=== PATIENT | female | born 1975 | race Caucasian/White ===

== ENCOUNTER 2023-08-01 13:32 | Emergency (ER) | payer OTHER ==
[2023-08-01 14:07] VITALS: BP 113/66; PULSE 109; RESP 18; TEMP 98; BMI 29.2
[2023-08-01] MEDS ORDERED: ACETAMINOPHEN 500 MG TABLET (FP) PO ONE (15:18)
[2023-08-01] MEDS ORDERED: ACETAMINOPHEN 500 MG TABLET (FP) ONE (15:20)
[2023-08-01 16:14] LABS: BASO % 0.3 % (0-2.0); EOS % 0.3 % (0-4.5); HEMATOCRIT 39.1 % (32.4-45.2); MCH 27.3 pg (25.7-33.7); MCHC 33.2 g/dl (32.0-36.0); MEAN PLT VOLUME 9.2 fl (7.5-11.1); MONO % 12.7 % (3.8-10.2); NEUT % 69.7 % (42.8-82.8); PLATELET COUNT 211 10^3/uL (134-434); RBC 4.77 M/mm3 (3.60-5.2); RDW 13.3 % (11.6-15.6); WHITE BLOOD COUNT 5.8 K/mm3 (4.0-10.0)
[2023-08-01 16:36] LABS: POTASSIUM 3.2 mmol/L (3.5-5.1)
[2023-08-01 16:37] LABS: CALCIUM 8.8 mg/dL (8.5-10.1)
[2023-08-01 16:38] LABS: BLOOD UREA NITROGEN 9.6 mg/dL (7-18)
[2023-08-01 16:41] LABS: CREATININE 0.5 mg/dL (0.55-1.3)
== END 2023-08-01 16:58 | disposition home or self-care (01) ==
LOC: JER 13:32 → JERFT 13:32
DX: R50.9 Fever, unspecified (principal); R11.0 Nausea; M79.10 Myalgia, unspecified site; U07.1 COVID-19
CPT/HCPCS: 0241U-QW; 36415; 71046-TC-FY; 80048; 84484; 85025; 93005; 93010; 99285-25

== ENCOUNTER 2024-03-27 00:50 | Emergency (ER) | payer OTHER ==
[2024-03-27 01:01] VITALS: BMI 30.2
[2024-03-27] MEDS ORDERED: ACETAMINOPHEN 325 MG TABLET (FP) ONE (02:23)
[2024-03-27] MEDS: ACETAMINOPHEN 500 MG TABLET (FP) PO ONE (02:26)
[2024-03-27] MEDS ORDERED: IBUPROFEN 400 MG TABLET (FP) PO ONE (02:54)
[2024-03-27] MEDS: IBUPROFEN 400 MG TABLET (FP) PO ONE (02:56)
[2024-03-27 04:06] VITALS: BP 90/60; PULSE 111; RESP 16; TEMP 99.5
== END 2024-03-27 04:28 | disposition home or self-care (01) ==
LOC: JER 00:50
DX: R50.9 Fever, unspecified (principal); M79.10 Myalgia, unspecified site; R51.9 Headache, unspecified; R06.02 Shortness of breath; R07.9 Chest pain, unspecified; R11.0 Nausea; R00.0 Tachycardia, unspecified; Z20.822 Contact with and (suspected) exposure to COVID-19
CPT/HCPCS: 0241U-QW; 93005; 93010; 99284-25

== ENCOUNTER 2024-05-07 12:28 | Inpatient (IN) | payer OTHER ==
[2024-05-07] MEDS: SODIUM CHLORIDE 1,000 ML IV STA ×2 (13:03→19:59)
[2024-05-07] MEDS: ACETAMINOPHEN 1000 MG/100 ML BAG IVPB ONE (13:03)
[2024-05-07] MEDS ORDERED: ACETAMINOPHEN INJECTION 100 ML ONE ×2 (13:04→22:44)
[2024-05-07 13:06] LABS: BASO % 0.2 % (0-2.0); EOS % 0.1 % (0-4.5); HEMATOCRIT 36.8 % (32.4-45.2); HEMOGLOBIN 12.3 GM/dL (10.7-15.3); LYMPH % 4.8 % (8-40); MCH 27.3 pg (25.7-33.7); MCHC 33.4 g/dl (32.0-36.0); MEAN CELL VOLUME 81.6 fl (80-96); MEAN PLT VOLUME 8.2 fl (7.5-11.1); MONO % 4.8 % (3.8-10.2); NEUT % 90.1 % (42.8-82.8); PLATELET COUNT 287 10^3/uL (134-434); RBC 4.51 M/mm3 (3.60-5.2); RDW 13.4 % (11.6-15.6); WHITE BLOOD COUNT 15.5 K/mm3 (4.0-10.0)
[2024-05-07 13:13] LABS: INR 1.13 (0.83-1.09)
[2024-05-07 13:16] LABS: ACTIVATED PTT 33.1 SECONDS (25.2-36.5)
[2024-05-07 13:24] LABS: POTASSIUM 3.8 mmol/L (3.5-5.1)
[2024-05-07 13:26] LABS: CALCIUM 9.3 mg/dL (8.5-10.1)
[2024-05-07 13:27] LABS: ALBUMIN 3.4 g/dl (3.4-5.0); BLOOD UREA NITROGEN 25.6 mg/dL (7-18)
[2024-05-07 13:30] LABS: CREATININE 0.9 mg/dL (0.55-1.3)
[2024-05-07 13:31] LABS: BILIRUBIN,TOTAL 0.6 mg/dL (0.2-1); TOT PROT 7.7 g/dl (6.4-8.2)
[2024-05-07 13:37] LABS: LACTIC ACID 2.3 mmol/L (0.4-2.0)
[2024-05-07] MEDS ORDERED: ONDANSETRON 4 MG/2 ML VIAL ONE (13:44)
[2024-05-07] MEDS: ONDANSETRON 4 MG/2 ML VIAL IVPUSH ONE (13:47)
[2024-05-07] MEDS: SODIUM CHLORIDE 0.9% 500 ML INFUS.BAG IV ONE ×3 (13:47→17:49)
[2024-05-07 14:41] LABS: EPI CELLS 19 /uL (0-25.1); HYALINE CASTS 1 /uL (0-3.1); PH,URINE 5.5 (5.0-8.0); URINE APPEARANCE CLOUDY; URINE BACTERIA 3735 /uL (0-1359); URINE BILIRUBIN NEGATIVE (NEGATIVE); URINE COLOR DK YELLOW; URINE GLUCOSE (UA) 3+ (NEGATIVE); URINE KETONE NEGATIVE (NEGATIVE); URINE LEUK ESTERASE 2+ (NEGATIVE); URINE NITRITE NEGATIVE (NEGATIVE); URINE PROTEIN 2+ (NEGATIVE); URINE WBC 2078 /uL (0-25.8)
[2024-05-07 14:44] LABS: URINE RBC 18 /uL (0-23.9)
[2024-05-07] MEDS ORDERED: PIPERACILLIN/TAZOB 4.5 GM 4.5 GM/100 ML BAG IVPB ONE (14:45)
[2024-05-07] MEDS: VANCOMYCIN 1,000 MG in DEXTROSE 5%-WATER - 250 ML IVPB ONE (14:53)
[2024-05-07] MEDS: PIPERACILLIN/TAZOB 3.375 GM 3.375 GM in DEXTROSE 5%-WATER - 50 ML IVPB ONE (14:53)
[2024-05-07] MEDS: PIPERACILLIN/TAZOB 4.5 GM 4.5 GM in DEXTROSE 5%-WATER 100 ML IVPB ONE (14:53)
[2024-05-07] MEDS: SODIUM CHLORIDE 1,000 ML IV SCH (20:29)
[2024-05-07] MEDS: INSULIN ASPART SLIDING SCALE (NOVOLOG) 1 VIAL SQ SCH (20:37)
[2024-05-07] MEDS ORDERED: PIPERACILLIN/TAZOB 3.375 GM 3.375 GM/50 ML BAG IVPB ONE (21:23)
[2024-05-07] MEDS ORDERED: INSULIN (LEVEMIR) 100 UNITS/ML UNITS SQ ONE (21:24)
[2024-05-07] MEDS: INSULIN (LEVEMIR) 100 UNITS/ML UNITS SQ ONE (21:30)
[2024-05-07] MEDS: PIPERACILLIN/TAZOB 3.375 GM 3.375 GM in DEXTROSE 5%-WATER - 50 ML IVPB SCH (21:30)
[2024-05-07] MEDS ORDERED: ONDANSETRON 4 MG/2 ML VIAL IVPUSH PRN (21:46)
[2024-05-07] MEDS: ACETAMINOPHEN 1000 MG/100 ML BAG IVPB PRN (22:46)
[2024-05-07] MEDS ORDERED: POLYETHYLENE GLYCOL (HEALTHYLAX) 3350 17 GM PACKET PO PRN (23:18)
[2024-05-08] MEDS: POLYETHYLENE GLYCOL (HEALTHYLAX) 3350 17 GM PACKET PO SCH (01:30)
[2024-05-08 04:12] VITALS: BMI 30.4
[2024-05-08] MEDS ORDERED: INSULIN (LEVEMIR) 100 UNITS/ML UNITS SQ SCH ×2 (07:00→22:00)
[2024-05-08 07:15] LABS: BASO % 0.2 % (0-2.0); EOS % 0.2 % (0-4.5); HEMOGLOBIN 10.3 GM/dL (10.7-15.3); LYMPH % 6.5 % (8-40); MCH 27.7 pg (25.7-33.7); MCHC 33.3 g/dl (32.0-36.0); MEAN CELL VOLUME 83.2 fl (80-96); MEAN PLT VOLUME 8.5 fl (7.5-11.1); MONO % 5.7 % (3.8-10.2); NEUT % 87.4 % (42.8-82.8); PLATELET COUNT 221 10^3/uL (134-434); RBC 3.73 M/mm3 (3.60-5.2); RDW 12.9 % (11.6-15.6); WHITE BLOOD COUNT 11.1 K/mm3 (4.0-10.0)
[2024-05-08 07:27] LABS: POTASSIUM 3.5 mmol/L (3.5-5.1)
[2024-05-08] MEDS: INSULIN ASPART SLIDING SCALE (NOVOLOG) 1 VIAL SQ SCH (07:31)
[2024-05-08 07:35] LABS: MAGNESIUM 1.6 mg/dL (1.8-2.4)
[2024-05-08 07:36] LABS: ALBUMIN 2.2 g/dl (3.4-5.0); CALCIUM 7.4 mg/dL (8.5-10.1)
[2024-05-08 07:38] LABS: CREATININE 0.5 mg/dL (0.55-1.3); PHOSPHOROUS 1.6 mg/dL (2.5-4.9)
[2024-05-08 07:39] LABS: BILIRUBIN,TOTAL 0.5 mg/dL (0.2-1)
[2024-05-08 07:44] LABS: TOT PROT 5.6 g/dl (6.4-8.2)
[2024-05-08] MEDS: ENOXAPARIN NA (PORCINE) 40 MG/0.4 ML DISP.SYRIN SQ SCH (09:42)
[2024-05-08] MEDS ORDERED: METOCLOPRAMIDE HCL INJECTION 10 MG/2 ML VIAL IVPUSH PRN (11:42)
[2024-05-08] MEDS: LACTATED RINGERS SOLUTION 1,000 ML/1,000 ML INFUS.BAG IV SCH ×2 (15:46→17:48)
[2024-05-08] MEDS: MAGNESIUM SULFATE IN WATER 2 GM/50 ML IVPB IVPB ONE (15:47)
[2024-05-08] MEDS: NAPH,MB-DB/K PH,MBDB POWDER PACKET PO ONE (15:47)
[2024-05-08] MEDS: PIPERACILLIN/TAZOB 3.375 GM 3.375 GM in DEXTROSE 5%-WATER - 50 ML IVPB SCH (17:16)
[2024-05-08] MEDS: INSULIN (LEVEMIR) 100 UNITS/ML UNITS SQ SCH (22:18)
[2024-05-09 07:55] LABS: BASO % 0.2 % (0-2.0); EOS % 1.1 % (0-4.5); HEMATOCRIT 29.4 % (32.4-45.2); HEMOGLOBIN 9.8 GM/dL (10.7-15.3); LYMPH % 14.1 % (8-40); MCH 27.5 pg (25.7-33.7); MCHC 33.4 g/dl (32.0-36.0); MEAN CELL VOLUME 82.4 fl (80-96); MEAN PLT VOLUME 8.7 fl (7.5-11.1); MONO % 7.9 % (3.8-10.2); NEUT % 76.7 % (42.8-82.8); PLATELET COUNT 210 10^3/uL (134-434); RBC 3.56 M/mm3 (3.60-5.2); RDW 13.3 % (11.6-15.6); WHITE BLOOD COUNT 9.5 K/mm3 (4.0-10.0)
[2024-05-09 08:08] LABS: POTASSIUM 3.3 mmol/L (3.5-5.1)
[2024-05-09 08:09] LABS: CALCIUM 8.3 mg/dL (8.5-10.1)
[2024-05-09 08:10] LABS: ALBUMIN 2.1 g/dl (3.4-5.0); BLOOD UREA NITROGEN 8.5 mg/dL (7-18)
[2024-05-09 08:14] LABS: CREATININE 0.3 mg/dL (0.55-1.3)
[2024-05-09 08:15] LABS: BILIRUBIN,TOTAL 0.9 mg/dL (0.2-1); TOT PROT 5.6 g/dl (6.4-8.2)
[2024-05-09] MEDS: SUCRALFATE 1 GM TABLET (FP) PO SCH (10:30)
[2024-05-09] MEDS: PANTOPRAZOLE SODIUM 40 MG VIAL IVPUSH SCH (10:30)
[2024-05-09] MEDS: CEFAZOLIN SODIUM 2 GM in DEXTROSE 5%-WATER 100 ML IVPB SCH (14:21)
[2024-05-09] MEDS: PNEUMOC 20-VAL CONJ-DIP CRM/PF 0.5 ML SYRINGE IM ONE (15:05)
[2024-05-09] MEDS: POTASSIUM CHLORIDE ORAL LIQUID 20 MEQ/15 ML PO ONE (17:37)
[2024-05-09] MEDS: ACETAMINOPHEN 325 MG TABLET (FP) PO PRN (18:25)
[2024-05-09] MEDS: PIPERACILLIN/TAZOB 3.375 GM 3.375 GM in DEXTROSE 5%-WATER - 50 ML IVPB SCH (19:46)
[2024-05-09] MEDS ORDERED: METOCLOPRAMIDE HCL INJECTION 10 MG/2 ML VIAL IVPUSH PRN (19:59)
[2024-05-09] MEDS: LACTATED RINGERS SOLUTION 1,000 ML/1,000 ML INFUS.BAG IV SCH (21:34)
[2024-05-09] MEDS: INSULIN (LEVEMIR) 100 UNITS/ML UNITS SQ SCH (21:34)
[2024-05-09] MEDS: POLYETHYLENE GLYCOL (HEALTHYLAX) 3350 17 GM PACKET PO SCH (21:39)
[2024-05-10] MEDS: INSULIN ASPART SLIDING SCALE (NOVOLOG) 1 VIAL SQ SCH (06:04)
[2024-05-10] MEDS: SUCRALFATE 1 GM TABLET (FP) PO SCH (06:04)
[2024-05-10 07:38] LABS: HEMATOCRIT 28.3 % (32.4-45.2); HEMOGLOBIN 9.5 GM/dL (10.7-15.3); MCH 27.6 pg (25.7-33.7); MCHC 33.4 g/dl (32.0-36.0); MEAN CELL VOLUME 82.7 fl (80-96); MEAN PLT VOLUME 8.4 fl (7.5-11.1); PLATELET COUNT 248 10^3/uL (134-434); RBC 3.43 M/mm3 (3.60-5.2); RDW 13.1 % (11.6-15.6)
[2024-05-10 07:47] LABS: CALCIUM 8.2 mg/dL (8.5-10.1)
[2024-05-10 07:50] LABS: BLOOD UREA NITROGEN 7.1 mg/dL (7-18)
[2024-05-10 07:51] LABS: CREATININE 0.4 mg/dL (0.55-1.3)
[2024-05-10 07:52] LABS: BILIRUBIN,TOTAL 0.3 mg/dL (0.2-1); TOT PROT 5.7 g/dl (6.4-8.2)
[2024-05-10 08:57] LABS: MAGNESIUM 1.9 mg/dL (1.8-2.4)
[2024-05-10] MEDS: POTASSIUM CHLORIDE ORAL LIQUID 20 MEQ/15 ML PO ONE (09:21)
[2024-05-10] MEDS: ENOXAPARIN NA (PORCINE) 40 MG/0.4 ML DISP.SYRIN SQ SCH (10:10)
[2024-05-10] MEDS: PANTOPRAZOLE SODIUM 40 MG VIAL IVPUSH SCH (10:10)
[2024-05-10] MEDS: INSULIN (LEVEMIR) 100 UNITS/ML UNITS SQ SCH (21:31)
[2024-05-11] MEDS ORDERED: CEFAZOLIN SODIUM 2 GM VIAL ONE (02:05)
[2024-05-11] MEDS ORDERED: INSULIN (LEVEMIR) 100 UNITS/ML UNITS SQ SCH (08:20)
[2024-05-11 08:54] LABS: BASO % 0.4 % (0-2.0); EOS % 1.1 % (0-4.5); HEMOGLOBIN 9.8 GM/dL (10.7-15.3); LYMPH % 17.7 % (8-40); MCH 27.1 pg (25.7-33.7); MCHC 32.9 g/dl (32.0-36.0); MEAN CELL VOLUME 82.6 fl (80-96); MEAN PLT VOLUME 8.4 fl (7.5-11.1); MONO % 9.1 % (3.8-10.2); NEUT % 71.7 % (42.8-82.8); PLATELET COUNT 309 10^3/uL (134-434); RBC 3.63 M/mm3 (3.60-5.2); RDW 13.4 % (11.6-15.6); WHITE BLOOD COUNT 7.9 K/mm3 (4.0-10.0)
[2024-05-11 09:12] LABS: POTASSIUM 3.9 mmol/L (3.5-5.1)
[2024-05-11 09:22] LABS: BLOOD UREA NITROGEN 4.9 mg/dL (7-18); CALCIUM 8.7 mg/dL (8.5-10.1)
[2024-05-11 09:25] LABS: CREATININE 0.3 mg/dL (0.55-1.3)
[2024-05-11] MEDS: INSULIN (LEVEMIR) 100 UNITS/ML UNITS SQ SCH (21:26)
[2024-05-12 07:26] VITALS: TEMP 98.4
[2024-05-12] MEDS: PANTOPRAZOLE 40 MG TABLET PO SCH (10:25)
[2024-05-12 11:26] VITALS: BP 95/75; PULSE 95; RESP 18
== END 2024-05-12 17:41 | disposition home or self-care (01) | DRG 720 ==
LOC: JER 12:28 → JERBED 14:52 → J4W 23:45 → J6S 05-09 18:28 → J7W 05-09 18:39
PROVIDERS: ADMIT Internal Medicine; ATTEND Nurse Practitioner
DX: A41.89 Other specified sepsis (principal); I95.9 Hypotension, unspecified; R00.0 Tachycardia, unspecified; D50.9 Iron deficiency anemia, unspecified; R11.2 Nausea with vomiting, unspecified; R91.1 Solitary pulmonary nodule; E11.65 Type 2 diabetes mellitus with hyperglycemia; N39.0 Urinary tract infection, site not specified; B96.20 Unspecified Escherichia coli [E. coli] as the cause of diseases classified elsewhere; D35.01 Benign neoplasm of right adrenal gland; K59.00 Constipation, unspecified; N12 Tubulo-interstitial nephritis, not specified as acute or chronic; N28.1 Cyst of kidney, acquired
CPT/HCPCS: 0241U-QW; 36415; 71045-TC-FY; 74176-TC; 76775-TC; 80048; 80053; 80061; 81003; 82962; 83036; 83605; 83735; 84100; 84443; 84484; 85025; 85027; 85610; 85730; 86850; 86900; 86901; 87040; 87086; 87186; 90677; 93005; 93010; 99285-25; G0009; J0131

== ENCOUNTER 2024-06-01 21:37 | Inpatient (IN) | payer OTHER ==
[2024-06-01] MEDS ORDERED: PIPERACILLIN/TAZOB 4.5 GM 4.5 GM/100 ML BAG IVPB ONE (22:58)
[2024-06-01] MEDS ORDERED: ACETAMINOPHEN INJECTION 100 ML ONE (22:58)
[2024-06-01 22:59] LABS: VENOUS O2 SATURATION 69.7 % (70-80); VENOUS PCO2 37.5 mmHg (38-52); VENOUS PH 7.44 (7.310-7.410)
[2024-06-01 23:02] LABS: EOS % 0.5 % (0-4.5); HEMATOCRIT 34.9 % (32.4-45.2); HEMOGLOBIN 11.4 GM/dL (10.7-15.3); MCH 26.8 pg (25.7-33.7); MCHC 32.7 g/dl (32.0-36.0); MEAN CELL VOLUME 81.9 fl (80-96); MEAN PLT VOLUME 8.5 fl (7.5-11.1); MONO % 8.8 % (3.8-10.2); NEUT % 75.7 % (42.8-82.8); PLATELET COUNT 216 10^3/uL (134-434); RBC 4.27 M/mm3 (3.60-5.2); WHITE BLOOD COUNT 12.2 K/mm3 (4.0-10.0)
[2024-06-01 23:07] LABS: EPI CELLS 8 /uL (0-25.1); HYALINE CASTS 2 /uL (0-3.1); URINE APPEARANCE CLEAR; URINE BACTERIA >9,000 /uL (0-1359); URINE BILIRUBIN NEGATIVE (NEGATIVE); URINE COLOR YELLOW; URINE GLUCOSE (UA) 2+ (NEGATIVE); URINE KETONE TRACE (NEGATIVE); URINE LEUK ESTERASE 2+ (NEGATIVE); URINE NITRITE POSITIVE (NEGATIVE); URINE PROTEIN 1+ (NEGATIVE); URINE RBC 25 /uL (0-23.9); URINE WBC 371 /uL (0-25.8)
[2024-06-01 23:08] LABS: INR 1.05 (0.83-1.09); PROTHROMBIN TIME (PATIENT) 11.9 SEC (9.7-13.0)
[2024-06-01] MEDS: SODIUM CHLORIDE 0.9% 500 ML INFUS.BAG IV ONE (23:09)
[2024-06-01] MEDS: ACETAMINOPHEN 1000 MG/100 ML BAG IVPB ONE (23:09)
[2024-06-01 23:11] LABS: ACTIVATED PTT 31.3 SECONDS (25.2-36.5)
[2024-06-01] MEDS: PIPERACILLIN/TAZOB 4.5 GM 4.5 GM in DEXTROSE 5%-WATER 100 ML IVPB ONE (23:11)
[2024-06-01 23:28] LABS: POTASSIUM 3.6 mmol/L (3.5-5.1)
[2024-06-01 23:31] LABS: BLOOD UREA NITROGEN 16.7 mg/dL (7-18)
[2024-06-01 23:34] LABS: CREATININE 0.6 mg/dL (0.55-1.3)
[2024-06-01 23:36] LABS: BILIRUBIN,TOTAL 0.7 mg/dL (0.2-1); TOT PROT 7.3 g/dl (6.4-8.2)
[2024-06-02] MEDS: SODIUM CHLORIDE 0.9% 500 ML INFUS.BAG IV ONE (00:02)
[2024-06-02] MEDS ORDERED: INSULIN ASPART SLIDING SCALE (NOVOLOG) 1 VIAL SQ ONE (02:36)
[2024-06-02] MEDS: LACTATED RINGERS SOLUTION 1,000 ML/1,000 ML INFUS.BAG IV SCH (02:56)
[2024-06-02] MEDS: INSULIN ASPART SLIDING SCALE (NOVOLOG) 1 VIAL SQ SCH ×2 (02:57→18:32)
[2024-06-02 04:09] VITALS: BMI 30.6
[2024-06-02] MEDS ORDERED: ACETAMINOPHEN 1000 MG/100 ML BAG IVPB PRN (04:13)
[2024-06-02] MEDS ORDERED: PIPERACILLIN/TAZOB 3.375 GM 3.375 GM in DEXTROSE 5%-WATER - 50 ML IVPB SCH (06:00)
[2024-06-02] MEDS: INSULIN (LEVEMIR) 100 UNITS/ML UNITS SQ SCH ×3 (06:00→06:09)
[2024-06-02] MEDS: PANTOPRAZOLE 40 MG TABLET PO SCH (06:10)
[2024-06-02] MEDS: PIPERACILLIN/TAZOB 3.375 GM 3.375 GM in DEXTROSE 5%-WATER - 50 ML IVPB SCH (06:11)
[2024-06-02 08:24] LABS: HEMATOCRIT 31.8 % (32.4-45.2); HEMOGLOBIN 10.4 GM/dL (10.7-15.3); MCH 27.1 pg (25.7-33.7); MCHC 32.9 g/dl (32.0-36.0); MEAN CELL VOLUME 82.5 fl (80-96); PLATELET COUNT 203 10^3/uL (134-434); RBC 3.85 M/mm3 (3.60-5.2); RDW 14.7 % (11.6-15.6); WHITE BLOOD COUNT 10.5 K/mm3 (4.0-10.0)
[2024-06-02 08:40] LABS: POTASSIUM 3.4 mmol/L (3.5-5.1)
[2024-06-02 08:47] LABS: CALCIUM 8.5 mg/dL (8.5-10.1); CREATININE 0.5 mg/dL (0.55-1.3)
[2024-06-02 08:48] LABS: ALBUMIN 2.5 g/dl (3.4-5.0); BLOOD UREA NITROGEN 10.2 mg/dL (7-18); MAGNESIUM 1.8 mg/dL (1.8-2.4); PHOSPHOROUS 2.2 mg/dL (2.5-4.9)
[2024-06-02 08:49] LABS: BILIRUBIN,TOTAL 0.5 mg/dL (0.2-1); TOT PROT 6.4 g/dl (6.4-8.2)
[2024-06-02] MEDS: ACETAMINOPHEN 1000 MG/100 ML BAG IVPB PRN (14:14)
[2024-06-02] MEDS: ENOXAPARIN NA (PORCINE) 40 MG/0.4 ML DISP.SYRIN SQ SCH (15:54)
[2024-06-02] MEDS ORDERED: PIPERACILLIN/TAZOB 4.5 GM 4.5 GM in DEXTROSE 5%-WATER 100 ML IVPB SCH (18:00)
[2024-06-02] MEDS: PIPERACILLIN/TAZOB 4.5 GM 4.5 GM in DEXTROSE 5%-WATER 100 ML IVPB SCH (18:18)
[2024-06-02] MEDS ORDERED: INSULIN ASPART SLIDING SCALE (NOVOLOG) 1 VIAL SQ SCH (22:00)
[2024-06-03 09:40] LABS: BASO % 0.4 % (0-2.0); EOS % 1.3 % (0-4.5); HEMATOCRIT 31.7 % (32.4-45.2); HEMOGLOBIN 10.5 GM/dL (10.7-15.3); LYMPH % 17.1 % (8-40); MCH 26.9 pg (25.7-33.7); MEAN CELL VOLUME 81.5 fl (80-96); MEAN PLT VOLUME 8.5 fl (7.5-11.1); MONO % 8.5 % (3.8-10.2); NEUT % 72.7 % (42.8-82.8); PLATELET COUNT 216 10^3/uL (134-434); RBC 3.89 M/mm3 (3.60-5.2); WHITE BLOOD COUNT 8.2 K/mm3 (4.0-10.0)
[2024-06-03 09:55] LABS: POTASSIUM 3.3 mmol/L (3.5-5.1)
[2024-06-03 10:07] LABS: ALBUMIN 2.5 g/dl (3.4-5.0); BLOOD UREA NITROGEN 6.7 mg/dL (7-18)
[2024-06-03 10:11] LABS: CREATININE 0.4 mg/dL (0.55-1.3)
[2024-06-03 10:12] LABS: BILIRUBIN,TOTAL 0.6 mg/dL (0.2-1); TOT PROT 6.5 g/dl (6.4-8.2)
[2024-06-03] MEDS: CEFTRIAXONE 2 GM in DEXTROSE 5%-WATER 100 ML IVPB SCH (11:30)
[2024-06-03] MEDS: POTASSIUM CHLORIDE ORAL LIQUID 20 MEQ/15 ML PO ONE (12:51)
[2024-06-03 14:09] VITALS: RESP 18
[2024-06-04 09:43] LABS: BASO % 0.5 % (0-2.0); EOS % 2.4 % (0-4.5); HEMATOCRIT 33.2 % (32.4-45.2); HEMOGLOBIN 10.7 GM/dL (10.7-15.3); LYMPH % 24.3 % (8-40); MCH 26.6 pg (25.7-33.7); MCHC 32.3 g/dl (32.0-36.0); MEAN CELL VOLUME 82.3 fl (80-96); MEAN PLT VOLUME 8.3 fl (7.5-11.1); MONO % 8.7 % (3.8-10.2); NEUT % 64.1 % (42.8-82.8); PLATELET COUNT 283 10^3/uL (134-434); RBC 4.04 M/mm3 (3.60-5.2); RDW 14.4 % (11.6-15.6); WHITE BLOOD COUNT 7.3 K/mm3 (4.0-10.0)
[2024-06-04 09:58] LABS: POTASSIUM 3.6 mmol/L (3.5-5.1)
[2024-06-04 10:01] LABS: CALCIUM 9.1 mg/dL (8.5-10.1)
[2024-06-04 10:03] LABS: ALBUMIN 2.6 g/dl (3.4-5.0); BLOOD UREA NITROGEN 9.9 mg/dL (7-18)
[2024-06-04 10:05] LABS: CREATININE 0.5 mg/dL (0.55-1.3)
[2024-06-04 10:06] LABS: BILIRUBIN,TOTAL 0.3 mg/dL (0.2-1); TOT PROT 6.9 g/dl (6.4-8.2)
[2024-06-04 16:30] VITALS: BP 119/85; PULSE 88; TEMP 98.6
== END 2024-06-04 15:12 | disposition home or self-care (01) | DRG 463 ==
LOC: JER 21:37 → JERBED 06-02 01:10 → J8W 06-02 04:04
PROVIDERS: ADMIT Internal Medicine; ATTEND Nurse Practitioner Family
DX: N10 Acute pyelonephritis (principal); E11.65 Type 2 diabetes mellitus with hyperglycemia; D50.9 Iron deficiency anemia, unspecified; N28.1 Cyst of kidney, acquired; I10 Essential (primary) hypertension; R91.1 Solitary pulmonary nodule; Z79.84 Long term (current) use of oral hypoglycemic drugs; B96.20 Unspecified Escherichia coli [E. coli] as the cause of diseases classified elsewhere
CPT/HCPCS: 0241U-QW; 36415; 71045-TC-FY; 74177-TC; 80053; 81003; 82803; 82962; 83036; 83605; 83735; 84100; 84484; 84703; 85025; 85027; 85610; 85730; 86850; 86900; 86901; 87040; 87086; 87186; 93005; 93010; 94010; 99285-25; J0131; Q9967

== ENCOUNTER 2024-07-27 08:08 | Emergency (ER) | payer OTHER ==
[2024-07-27 08:17] VITALS: BP 128/84; PULSE 102; RESP 18; TEMP 98.5; BMI 30.2
[2024-07-27] MEDS ORDERED: ACETAMINOPHEN 325 MG TABLET (FP) ONE (09:10)
[2024-07-27] MEDS ORDERED: valACYclovir HCL 500 MG TABLET (FP) ONE (09:10)
[2024-07-27] MEDS: valACYclovir HCL 500 MG TABLET (FP) PO ONE (09:29)
[2024-07-27] MEDS: ACETAMINOPHEN 500 MG TABLET (FP) PO ONE (09:29)
== END 2024-07-27 09:57 | disposition home or self-care (01) ==
LOC: JER 08:08
DX: L29.9 Pruritus, unspecified (principal); B02.9 Zoster without complications; R50.9 Fever, unspecified; R10.9 Unspecified abdominal pain
CPT/HCPCS: 99283-25